=== PATIENT | female | born 1975 | race Caucasian/White ===

== ENCOUNTER 2016-10-22 00:03 | Emergency (ER) | payer OTHER | END 2016-10-22 03:21 | disposition home or self-care (01) | LOC: ER 00:03 | DX: S00.33XA Contusion of nose, initial encounter (principal); S00.83XA Contusion of other part of head, initial encounter; S40.011A Contusion of right shoulder, initial encounter; J45.909 Unspecified asthma, uncomplicated; K21.9 Gastro-esophageal reflux disease without esophagitis; F17.210 Nicotine dependence, cigarettes, uncomplicated; Z23 Encounter for immunization; Z90.710 Acquired absence of both cervix and uterus; Z98.51 Tubal ligation status; Z87.442 Personal history of urinary calculi; V43.42XA Person boarding or alighting a car injured in collision with other type car, initial encounter | CPT/HCPCS: 90471; 96372; J2550 ==